=== PATIENT | male | born 1980 | race African-American/Black ===

== ENCOUNTER 2017-03-28 09:00 | Inpatient (IN) | payer OTHER ==
[~2017-03-28] VITALS: Ht 175.3 cm; Wt 83.9 kg
--- NOTE | ~2017-03-28 | HP ---
Unit #: [id number] #: [id number] Patient: MIKE BRAVO [id number] [place] [address] [id number] I MR#: [id number] NAME: MIKE BRAVO. ROOM: P116 Age: 36 Sex: M Admission Date: 03/28/2017 : 1980 Attending Physician: Lance Godinez M.D. Admitting Physician: Lance Godinez M.D. HISTORY AND PHYSICAL HISTORY OF PRESENT ILLNESS Mike is a 36 year old admitted to [address] [place] [address] with depression and verbalizing wanting to hurt himself. PAST MEDICAL HISTORY Nothing significant. PAST SURGICAL HISTORY Nothing reported. ALLERGIES No known drug allergies. SOCIAL HISTORY He denies cigarettes, alcohol and illicit drug use. FAMILY HISTORY Medically noncontributory. REVIEW OF SYSTEMS CONSTITUTIONAL: No fever or chills. HEENT: Denies any sore throat, ear pain or runny nose. CARDIOVASCULAR: Denies chest pain, irregular heart rhythm or palpitations. CHEST: Denies shortness of breath or cough. No hemoptysis. GASTROINTESTINAL: Denies nausea, vomiting, diarrhea or chronic constipation. ENDOCRINE: Denies history of increased thirst or urination. No recent significant weight loss or gain. GENITOURINARY: Denies dysuria, frequency, or hematuria. SKIN: Denies any rashes. HEMATOLOGIC: Denies history of increased bleeding or bruising. MUSCULOSKELETAL: Denies any hot, swollen joints. No generalized muscle pain. NEUROLOGIC: Denies problems with vision or speech. No frequent, severe headaches. No numbness, tingling or weakness in any extremities. Denies loss of bladder or bowel control. CURRENT MEDICATIONS 1. Milk of Magnesia p.r.n. 2. Maalox p.r.n. 3. Tylenol p.r.n. PHYSICAL EXAMINATION Unit #: [id number] #: [id number] Patient: MIKE BRAVO GENERAL: Alert, well-nourished, in no apparent distress. VITAL SIGNS: Blood pressure 128/72, heart rate 66, respirations 16, temperature 98.6. WEIGHT: 185. HEIGHT: 5 feet 9 inches. SKIN: Warm and dry without rash or lesion. HEENT: Normocephalic. TMs not viewed. Oral and nasal passages clear. Conjunctivae clear. PERRLA. EOMs intact. NECK: Supple without lymphadenopathy or thyromegaly. HEART: Regular rate and rhythm without murmur. LUNGS: Clear. ABDOMEN: Soft, nontender. : Not done. EXTREMITIES: No evidence of cyanosis, clubbing or edema. Moves all without focal deficit. NEUROLOGICAL: Grossly within normal limits. Cranial Nerves: II: Visual morgan are intact. III, IV AND : Extraocular movements are intact. Pupils are equal, round and reactive to light. V: Facial sensation is grossly normal. VII: Facial movements and expression are normal. VIII: Auditory acuity grossly intact. IX, X: Uvula is midline. Phonation is normal. XI: Patient shrugs shoulders and turns head normally. XII: Tongue protrudes in the midline. Sensory and Motor Function: Sensory and motor sensation is grossly normal. Motor: moves all extremities well. Coordination: Gait is normal. Deep Tendon Reflexes: Intact. IMPRESSION Psychiatric admission. RECOMMENDATIONS PSYCHIATRIC: Per psychiatrist. MEDICAL: See no contraindication to participate in facility's activities. MEDICAL PROGNOSIS Good. MEDICAL CONDITION Stable. Dictated by... Libby Mccarthy P.A.-C. for Gretel Johns/erasmo TD: 03/28/2017 21:23 JOB #: [id number] Unit #: [id number] #: [id number] Patient: MIKE BRAVO HISTORY AND PHYSICAL Page 1 of 1 X Libby Mccarthy HISTORY AND PHYSICAL
--- NOTE | ~2017-03-28 | PN ---
Unit #: [id number] #: [id number] Patient: MIKE BRAVO [id number] [facility] [address] [place] [address] [id number] I MR#: [id number] NAME: MIKE BRAVO ROOM: P113 Age: 36 Sex: M Admission Date: 03/28/2017 : 1980 Attending Physician: Lance Godinez M.D. Admitting Physician: Gretel Perez PROGRESS NOTES DATE March 31, 2017 DISCUSSION Mr. Bravo is a 36-year-old male, who was seen today and chart was reviewed and the case was discussed with the staff. He has been anxious, withdrawn, depressed, and seclusive to himself with blunted affect and minimal interaction, though does not appear to be a danger to self or anyone else, and has not shown agitation or aggression, and has not voiced any thoughts of hurting himself or hurt anyone else. He has been taking the medications and tolerating them fairly well with no reported side effects. MENTAL STATUS EXAMINATION Young male, who was casually dressed with fair personal hygiene and appears to be in no acute distress or discomfort. He was awake and alert on interaction with intact orientation. His mood is anxious with a congruent affect. His speech is slow and restricted in content. He denies any suicidal or homicidal ideation. His insight and judgment remain significantly impaired. TREATMENT PLAN 1. We will continue him on his current medications and treatment protocol, and will monitor his response to the medications, and make further adjustments as needed. 2. We will continue to followup. Dictated by... Gretel Perez/kevin TD: 04/01/2017 05:54 JOB #: [id number] Unit #: [id number] #: [id number] Patient: MIKE BRAVO PROGRESS NOTES Page 1 of 1 X Lance Godinez MD PROGRESS NOTE
--- NOTE | ~2017-03-28 | PN ---
Unit #: [id number] #: [id number] Patient: MIKE BRAVO [id number] [facility] [address] [place] [address] [id number] I MR#: [id number] NAME: MIKE BRAVO ROOM: P113 Age: 36 Sex: M Admission Date: 03/28/2017 : 1980 Attending Physician: Lance Godinez M.D. Admitting Physician: Gretel Perez PROGRESS NOTES DATE 04/02/2017 DISCUSSION Mr. Bravo is a 36-year-old, male who was seen today and chart was reviewed and case was discussed with the staff. He appears to be somewhat better than yesterday and has been calmer and has not shown any agitation or aggression in the last 24 hours. He has been taking medications and tolerating them fairly well with no reported side effects. has been doing fairly well with no agitation, irritability or behavioral problems and has been cooperative with the treatment recommendations. He has been taking the medication and tolerating them fairly well with no reported side effects. MENTAL STATUS EXAM Young male who was casually dressed with fair personal hygiene, appears to be in no acute distress or discomfort. He was awake and alert with impaired attention and concentration. Her mood was anxious with congruent affect. Her speech was slow and tangential. Her thought processes were disorganized with some looseness of associations and also denies any auditory or visual hallucinations. Her insight and judgement remains significantly impaired. TREATMENT PLAN 1. We will continue her on her current medications and treatment protocol. We will monitor her response to medication and make further adjustments as needed. 2. We will continue to follow up. Dictated by... Gretel ePrez/mary TD: 04/02/2017 22:43 JOB #: [id number] Unit #: [id number] #: [id number] Patient: MIKE BRAVO PROGRESS NOTES Page 1 of 1 X Lance Godinez MD X PROGRESS NOTE
--- NOTE | ~2017-03-28 | DS ---
Unit #: [id number] #: [id number] [facility] [id number] [facility] [address] [place] [address] [id number] I MR#: [id number] NAME: MIKE BRAVO. ROOM: 13 Age: 36 Sex: M Admission Date: 03/28/2017 : 1980 Discharge Date: 04/05/2017 Attending Physician: Lance Godinez M.D. DISCHARGE SUMMARY IDENTIFYING DATA Mr. Bravo is a 36-year-old single male who is a resident of [place], [place] and was self-referred to the hospital on voluntary basis. HISTORY OF PRESENT ILLNESS Please see initial psychiatric evaluation. PAST PSYCHIATRIC HISTORY Please see initial psychiatric evaluation. PAST MEDICAL HISTORY Please see initial psychiatric evaluation. HOSPITAL COURSE The patient [facility] and was oriented to the hospital environment. Routine p.r.n. medications were initiated and given his presentation, he was considered to be a candidate for long-acting injectable antipsychotic and after ruling out to the molecule of Risperdal, Invega Sustenna was initiated with good tolerability and therapeutic response as patient was calm and cooperative and compliant with treatment recommendations and was denying any thoughts of wanting to hurt himself or hurt anyone else and was wanting to go home and was willing to continue treatment on outpatient basis and as such it was decided that he will be discharged home and will continue treatment on outpatient basis. DISCHARGE DIAGNOSES PSYCHIATRIC: 1. Schizoaffective disorder, bipolar type, most recent episode depressed, recurrent, moderate, with psychosis. 2. Alcohol abuse, moderate. 3. Cannabis abuse, moderate. 4. Cocaine abuse, moderate. MEDICAL: None. STRESSORS: Moderate psychosocial stressors. DISCHARGE MEDICATIONS Invega Sustenna 156 mg intramuscular every 30 days. Unit #: [id number] #: [id number] Patient: MIKE BRAVO CONDITION AT DISCHARGE Stable. PROGNOSIS Fair. Dictated by... Lance Godinez M.D. IAA/etelvinah TD: 04/05/2017 18:45 JOB #: [id number] DISCHARGE SUMMARY Page 1 of 1 X Lance Godinez MD DISCHARGE SUMMARY
--- NOTE | ~2017-03-28 | PN ---
Unit #: [id number] #: [id number] Patient: MIKE BRAVO [id number] [facility] [address] [place] [address] [id number] I MR#: [id number] NAME: MIKE BRAVO ROOM: P116 Age: 36 Sex: M Admission Date: 03/28/2017 : 1980 Attending Physician: Lance Godinez M.D. Admitting Physician: Gretel Perez PROGRESS NOTES DATE March 29, 2017 DISCUSSION Mr. Bravo is a 36-year-old male, with mood disorder, and psychosis, who was seen today and chart was reviewed and the case was discussed with the staff. He remains anxious, withdrawn, and rather seclusive to himself. Meanwhile, he has been cooperative with the treatment recommendations, and he has been taking the medications and tolerating them fairly well with no reported side effects. MENTAL STATUS EXAMINATION Young male, who was casually dressed with fair personal hygiene and appears to be in no acute distress or discomfort. He was awake and alert with intact orientation. His mood is anxious with a congruent affect. His speech is slow and restricted in content. His thought processes are disorganized with some looseness of associations and paranoid ideations, and delusional behavior. His insight and judgment remain significantly impaired. TREATMENT PLAN 1. We will continue him on his current medications and treatment protocol, and will monitor his response to the medications, and make further adjustments as needed. 2. We will continue to followup. Dictated by... Gretel Perez/kevin TD: 03/29/2017 08:36 JOB #: [id number] Unit #: [id number] #: [id number] Patient: MIKE BRAVO PROGRESS NOTES Page 1 of 1 X Lance Godinez MD PROGRESS NOTE
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
--- NOTE | ~2017-03-28 | PN ---
Unit #: [id number] #: [id number] Patient: MIKE BRAVO [id number] [facility] [address] [place] [address] [id number] MR#: [id number] NAME: MIKE BRAVO ROOM: 13 Age: 36 Sex: M Admission Date: 03/28/2017 : 1980 Attending Physician: Lance Godinez M.D. Admitting Physician: Gretel Perez PROGRESS NOTES DATE OF SERVICE 04/03/2017 DISCUSSION Mr. Bravo is a 36-year-old male who was seen today. Chart was reviewed and case was discussed with the staff. He appears to be doing fairly well and has been showing improvement in his depression and anxiety, and he was able to carry on better conversation with me this morning as he was up and about and was facing the hallways and stated that he has concern about his living situation as he was staying with his sister, but it has not been a good environment for him, and (1) __ sister help him with having solutions. Meanwhile, he has been taking the medications and tolerating them fairly well. MENTAL STATUS EXAMINATION Young male who is casually dressed with fair personal hygiene, appears to be in no acute distress or discomfort. He was awake and alert on interaction with intact orientation. His mood is anxious with congruent affect. He denies any suicidal or homicidal ideations and also denies any auditory or visual hallucinations. His insight and judgment remain slightly impaired. TREATMENT PLAN 1. We will continue him on his current medications and treatment protocol. We will monitor his response to the medications and make further adjustments as needed. 2. We will continue to follow up. Dictated by... Lance Godinez M.D. IAA/bzg TD: 04/03/2017 11:42 JOB #: [id number] Unit #: [id number] #: [id number] Patient: MIKE BRAVO PROGRESS NOTES Page 1 of 1 X Lance Godinez MD X PROGRESS NOTE
--- NOTE | ~2017-03-28 | PN ---
Unit #: [id number] #: [id number] Patient: MIKE BRAVO [id number] [facility] [address] [place] [address] [id number] I MR#: [id number] NAME: MIKE BRAVO ROOM: 13 Age: 36 Sex: M Admission Date: 03/28/2017 : 1980 Attending Physician: Lance Godinez M.D. Admitting Physician: Gretel Perez PROGRESS NOTES DATE 03/30/2017 DISCUSSION Mr. Bravo is a 36-year-old male who was seen today and chart was reviewed and case was discussed with the staff. He has been anxious, withdrawn, depressed and rather seclusive to himself and remains paranoid, delusional, agitated, irritable and showing very poor insight into his situation. Meanwhile, he has been taking medications and tolerating them fairly well with no reported side effects. MENTAL STATUS EXAMINATION Young male who was casually dressed with fair personal hygiene and appears to be in no acute distress or discomfort. He was awake and alert with impaired attention and concentration. His mood was anxious with congruent affect. His speech is slow and tangential. His thought processes were disorganized with some looseness of associations and flight of ideas and suicidal ideation and vague homicidal ideation. His insight and judgement remains significantly impaired. TREATMENT PLAN 1. Will continue on his current medications and treatment protocol. Will monitor his response to medications and make further adjustments as needed. 2. Will continue to follow up. Dictated by... Gretel Perez/erasmo TD: 03/30/2017 17:31 JOB #: [id number] Unit #: [id number] #: [id number] Patient: MIKE BRAVO PROGRESS NOTES Page 1 of 1 X Lance Godinez MD PROGRESS NOTE
--- NOTE | ~2017-03-28 | PN ---
Unit #: [id number] #: [id number] Patient: MIKE BRAVO [id number] [facility] [address] [place] [address] [id number] I MR#: [id number] NAME: MIKE BRAVO ROOM: 13 Age: 36 Sex: M Admission Date: 03/28/2017 : 1980 Attending Physician: Lance Godinez M.D. Admitting Physician: Gretel Perez PROGRESS NOTES DATE April 04, 2017 DISCUSSION Mr. Bravo is a 36-year-old male, who was seen today and chart was reviewed and the case was discussed with the staff. He has been anxious, withdrawn, and rather seclusive to himself. Meanwhile, he has been cooperative with the treatment recommendations and he has been taking the medications and tolerating them fairly well with no reported side effects. MENTAL STATUS EXAMINATION Young male, who was casually dressed with fair personal hygiene and appears to be in no acute distress or discomfort. He was awake and alert on interaction with intact orientation. His mood is anxious with a congruent affect. His speech is slow and goal-directed. He denies any suicidal or homicidal ideations. His insight and judgment remain slightly impaired. TREATMENT PLAN 1. We will continue him on his current medications and treatment protocol, and will monitor his response to the medications, and make further adjustments as needed. 2. We will continue to followup. Dictated by... Gretel Perez/kevin TD: 04/04/2017 11:02 JOB #: [id number] Unit #: [id number] #: [id number] Patient: MIKE BRAVO PROGRESS NOTES Page 1 of 1 X Lance Godinez MD PROGRESS NOTE
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
[2017-03-29 10:33] LABS: ALBUMIN SERUM 3.8 g/dL (3.5-5.0); BASOPHIL% 0.4 % (0-2.5); BILIRUBIN,TOTAL 0.7 mg/dL (0.2-2.0); BUN/CREATININE RATIO 11.66; CALCIUM SERUM 9.5 mg/dL (8.4-10.2); CREATININE SERUM 1.2 mg/dL (0.6-1.4); EOSINOPHIL# 0.3 X10e3 (0-0.7); HEMATOCRIT 42.6 % (38.0-50.0); HEMOGLOBIN 14.5 gm/dL (13.0-16.0); LYMPHOCYTE# 2.4 X10e3 (1.0-3.5); LYMPHOCYTE% 55.4 % (17.0-45.0); MEAN CELL VOLUME 91.7 FL (83-96); MEAN CORPUSCULAR HEMOGLOBIN 31.2 PG (28-34); MEAN CORPUSCULAR HGB CONC 34.1 g/dL (30-36); MEAN PLATELET VOLUME 7.3 FL (6.5-11.5); MONOCYTE# 0.3 X10e3 (0-1.0); MONOCYTE% 7.8 % (3.0-12.0); NEUTROPHIL# 1.3 X10e3 (1.5-7.1); NEUTROPHIL% 29.4 % (40-75); PLATELET COUNT 238 X10e3 (140-420); POTASSIUM 4.1 mmol/L (3.5-5.1); PROTEIN TOTAL SERUM 7.2 g/dL (6.0-8.3); RED BLOOD COUNT 4.64 X10e (3.90-5.60); RED CELL DISTRIBUTION WIDTH 13.7 % (11.0-15.5); WHITE BLOOD COUNT 4.3 X10e3 (4.0-10.5)
[2017-03-29 10:34] LABS: DIFF IND YES
[2017-03-29 11:10] LABS: PLATELET ESTIMATE NORMAL (NORMAL)
== END 2017-04-05 09:50 | disposition home or self-care (01) | DRG 885 ==
LOC: P1S 13:19
PROVIDERS: Psychiatry & Neurology Psychiatry
DX: F25.0 Schizoaffective disorder, bipolar type (principal); F14.20 Cocaine dependence, uncomplicated; R45.851 Suicidal ideations; F10.20 Alcohol dependence, uncomplicated; F12.20 Cannabis dependence, uncomplicated; R45.850 Homicidal ideations
CPT/HCPCS: 80053; 85025